=== PATIENT | male | born 1975 | race Caucasian/White ===

== ENCOUNTER → 2020-06-22 | Outpatient (CLI) | payer OTHER ==
--- NOTE | 2020-06-22 20:30 | CONS ---
CONSULTATION DATE OF SERVICE: 06/22/2020 HISTORY OF PRESENT ILLNESS/SLEEP WAKE EVALUATION: 44-year-old gentleman who has been re-evaluated in Sleep Center for obstructive sleep apnea-hypopnea syndrome. The patient has been diagnosed with severe obstructive sleep apnea in 2014 and he was started on treatment with CPAP. He used CPAP for several years, but for the last more than 2 years, patient stopped using any CPAP treatment. SLEEP SCHEDULE: Presently, his sleep schedule from 10 p.m. until around 6 a.m. on work days and from 10 p.m. to 7 a.m. on weekends. FALLING ASLEEP: No problems with falling asleep. No TV in bedroom. DURING SLEEP: Usually sleeps on the side position. He snores and wakes up from sleep up to 10 times with one episode of nocturia. He has symptoms of restless legs and he has significant amount of movements during the night, possibly periodic limb movements. [place]ile Sleepiness Scale today is 9. PAST MEDICAL HISTORY: Positive for hypertension and seasonal allergies. History of strep throat infection in the past. History of some nasal breathing problems. PAST SURGICAL HISTORY: None. MEDICATIONS: Lisinopril 10 mg once a day. Hydrochlorothiazide 12.5 mg once a day. Montelukast 10 mg once a day. FAMILY HISTORY: Hypertension. REVIEW OF SYSTEMS: Multiple awakenings from sleep, sleepiness during the day. PHYSICAL EXAM: gentleman without distress. P 147/79, HR 89, RR 15, height 6 feet and 2 inches, weight 329, temp 98.1. Oxygen saturation at room air 98%. Oropharynx showed tongue protrudes midline. Moderately low position of soft palate. NECK: Supple, no JVD. Thyroid is not palpable. LUNGS: Clear to percussion and to auscultation. Good air exchange. No wheezing or rhonchi. HEART: S1, S2 regular. No murmurs, gallops, or rubs. ABDOMEN: Obese. Soft and nontender. Bowel sounds are present. No organomegaly appreciated. EXTREMITIES: No clubbing or cyanosis. CONTACT LENS CUTTER: Awake, alert, and oriented X3. Cranial nerves 2 to 7 intact. There is no fasciculation or atrophy. noted. No focal deficits observed. IMPRESSION: 1. Snoring, multiple awakenings from sleep, low position of soft palate, wide neck, sleepiness, history of obstructive sleep apnea-hypopnea syndrome, obstructive sleep apnea-hypopnea syndrome. 2. Obesity, body mass index 42.2. 3. Hypertension. 4. Seasonal allergy. 5. History of strep throat infection in the past. 6. Some restriction of nasal breathing. 7. Restless leg symptoms. Possibly periodic limb movements disorder. Patient has significant movements at night. PLAN: 1. Polysomnography for evaluation of patient's breathing during sleep. 2. CPAP/BiPAP titration if sleep study confirms obstructive sleep apnea-hypopnea syndrome. 3. Preferable position during sleep on the side. 4. No driving if patient feels any sleepiness. 5. I will see patient for follow up visit to explain results of testing and following plan. Thank you very much for allowing me to participate in management of your patient. Sincerely, Mendoza He MD, PhD, FAASM Diplomat of [place] [employer] [place] [employer] It Audit Manager of [facility] [place] MMODL / IJN: [id number] /
== END | disposition home or self-care (01) ==
LOC: SLEEP 13:42
PROVIDERS: ATTEND Internal Medicine
DX: G47.33 Obstructive sleep apnea (adult) (pediatric) (principal); E66.9 Obesity, unspecified; I10 Essential (primary) hypertension; G25.81 Restless legs syndrome; J30.2 Other seasonal allergic rhinitis; Z68.41 Body mass index [BMI] 40.0-44.9, adult; Z87.09 Personal history of other diseases of the respiratory system
CPT/HCPCS: 99211

== ENCOUNTER → 2020-10-12 | Outpatient (CLI) | payer OTHER ==
--- NOTE | 2020-10-12 22:43 | SFUN ---
SLEEP CENTER FOLLOW UP NOTE DATE OF SERVICE: 10/12/2020 This 44-year-old gentleman has been followed in Sleep Center for treatment of obstructive sleep apnea-hypopnea syndrome. During home sleep apnea test, apnea-hypopnea index was 10.8 with oxygen desaturation to 77%. Subsequently patient was started on treatment with CPAP. Today is his first visit after starting treatment. The patient feels better with the CPAP but is sometimes experiencing discomfort related to his sinuses because of dryness. According to him, the machine is in automatic regimen for the adjustments of humidity. I checked his CPAP unit. It is in automatic regimen with the pressure 5-15, average pressure 9.8 cm of water. Usage is every night, and / nights for more than 4 hours. Average usage is 6.9 hours per night. Leak is 10 L/minute, which is in acceptable range. Apnea-hypopnea index is 2.9, which is normal. Sometimes the patient feels some discomfort in his ears and nose when he is using CPAP. CURRENT MEDICATIONS: 1. Lisinopril 10 mg once a day. 2. Hydrochlorothiazide 12.5 mg once a day. 3. Montelukast 10 mg once a day. PHYSICAL EXAMINATION: GENERAL: A pleasant patient in no distress. VITAL SIGNS: BP 137/77, HR 76, RR 15, weight 338.6, temperature 98.4, oxygen saturation at room air 98%. HEENT: PERRLA, EOMI. Evaluation of oropharynx showed tongue protrudes midline. Moderately low position of soft palate. NECK: Supple. No JVD. Thyroid is not palpable. LUNGS: Clear to percussion and to auscultation. Good air exchange. No wheezing or rhonchi. HEART: S1, S2 regular. No murmurs, gallops or rubs. ABDOMEN: Slightly obese. EXTREMITIES: No clubbing or cyanosis. BIOFUELS PLANT OPERATIONS ENGINEER: Awake, alert, and oriented X3. Cranial nerves 2 to 7 intact. There is no fasciculation or atrophy. noted. No focal deficits observed. IMPRESSION: 1. Obstructive sleep apnea-hypopnea syndrome. Patient demonstrated great compliance with treatment, benefitting from treatment. 2. Obesity. 3. Hypertension. 4. Seasonal allergies. 5. History of sinus problems. 6. Some dryness in the nose while using his CPAP equipment. PLAN: 1. I extensively discussed with the patient adjustments of humidity, including adjustments of temperature in the humidifier and in the tube. At present it is at the level of 4. Maximum level is 8. The patient should use the manual way of adjustment. The machine should stay lower than his head. Tube has to go directly to the machine without any tube position. 2. Patient will continue to use PAP equipment every night for the whole night. 3. Sleep hygiene with regular time in bed for at least 7-1/2 to 8 hours. 4. Precautions related to driving. No driving if feeling sleepiness. 5. I will maintain all necessary prescription for PAP supplies including mask, tube, filters. 6. Watching weight. 7. No driving if feeling sleepiness. 8. Follow-up visit in 3 months or earlier if patient has any problems. Mendoza He MD, PhD, FAASM Diplomat of [place] [employer] [place] [employer] Medicine Boat Carpenter Mechanic of [facility] [place] MMODL / MAITEN: [id number] /
== END | disposition home or self-care (01) ==
LOC: SLEEP 14:44
PROVIDERS: ATTEND Internal Medicine
DX: G47.33 Obstructive sleep apnea (adult) (pediatric) (principal); E66.9 Obesity, unspecified; I10 Essential (primary) hypertension; J34.89 Other specified disorders of nose and nasal sinuses; J30.2 Other seasonal allergic rhinitis; Z86.69 Personal history of other diseases of the nervous system and sense organs; Z99.89 Dependence on other enabling machines and devices; Z79.51 Long term (current) use of inhaled steroids; Z79.899 Other long term (current) drug therapy

== ENCOUNTER → 2021-01-24 | Outpatient (CLI) | payer OTHER ==
--- NOTE | 2021-01-24 19:36 | SFUN ---
SLEEP CENTER FOLLOW UP NOTE DATE OF SERVICE: 01/24/2021 This 45-year-old gentleman has been followed in Sleep Center for treatment of obstructive sleep apnea-hypopnea syndrome. The patient continues to use his CPAP equipment every night after adjustments related to humidity during the previous visit. Everything has been fixed. No problems with nasal dryness. The patient feels comfortable. Mabel Sleepiness Scale today is 6. I checked his CPAP unit. CPAP pressure is in the range 5 to 15 with average pressure 9.3 cm of water. Usage is 22/30 nights and 21/30 nights for more than 4 hours. Average usage is 6.9 hours per night. Leak is 1 L/minute. Apnea-hypopnea index is 2.0, which is within normal range. MEDICATIONS: 1. Lisinopril 10 mg once a day. 2. Hydrochlorothiazide 12.5 mg once a day. PHYSICAL EXAMINATION: GENERAL: A pleasant patient in no distress. VITAL SIGNS: BP 122/78, HR 64, RR 12. Height 6 feet 2 inches , weight 334.6. Temperature 97.1. Oxygen saturation at room air 99%. HEENT: PERRLA, EOMI. Evaluation of oropharynx showed tongue protrudes midline. Moderately low position of soft palate. NECK: Supple. No JVD. Thyroid is not palpable. LUNGS: Clear to percussion and to auscultation. Good air exchange. No wheezing or rhonchi. HEART: S1, S2 regular. No murmurs, gallops or rubs. ABDOMEN: Obese. EXTREMITIES: No clubbing or cyanosis. MACHINE QUILT STUFFER: Awake, alert, and oriented X3. Cranial nerves 2 to 7 intact. There is no fasciculation or atrophy. noted. No focal deficits observed. IMPRESSION: 1. Obstructive sleep apnea-hypopnea syndrome. Patient demonstrated great compliance with treatment, benefitting from treatment. Normal respiration on CPAP. 2. Hypertension. 3. Obesity. 4. Seasonal allergy. 5. History of sinus problems. PLAN: 1. Patient will continue to use PAP equipment every night for the whole night. 2. Sleep hygiene with regular time in bed for at least 7-1/2 to 8 hours. 3. Precautions related to driving. No driving if feeling sleepiness. 4. I will maintain all necessary prescription for PAP supplies including mask, tube, filters. 5. Watching weight. 6. Follow-up visit in 6 months or earlier if patient has any problems. Sincerely, Mendoza He MD, PhD, FAASM Diplomat of [place] [employer] Special[employer] [place] [employer] Internal Medicine Bevel Face Stoner And Polisher of [facility] [place] MMLELANDL / MAITEN: [id number] /
== END ==
LOC: SLEEP 15:33
PROVIDERS: ATTEND Internal Medicine
DX: G47.33 Obstructive sleep apnea (adult) (pediatric) (principal); I10 Essential (primary) hypertension; E66.9 Obesity, unspecified; J30.2 Other seasonal allergic rhinitis; Z87.09 Personal history of other diseases of the respiratory system

== ENCOUNTER → 2021-09-26 | Outpatient (CLI) | payer OTHER ==
--- NOTE | 2021-09-26 20:26 | SFUN ---
SLEEP CENTER FOLLOW UP NOTE DATE OF SERVICE: 09/26/2021. 45-year-old gentleman has been followed in Sleep Center for treatment of obstructive sleep apnea-hypopnea syndrome. Patient continued to use his CPAP equipment every night. No problems with usage of the machine. He had some questions about the cleaning of equipment which was answered. [place]is Sleepiness Scale today is 5, which is normal. I checked his CPAP unit. The air filter needs to be changed immediately. Pressure is 5- 15 average 9.8. Usage is 29/30 nights and /30 nights more than 4 hours, average 7 hours per night which is good compliance. Leak is 2 L/minute which is absolutely normal. Apnea-hypopnea index is 2.6 which is normal. MEDICATIONS: Lisinopril 10 mg once a day, hydrochlorothiazide 12.5 mg once a day. PHYSICAL EXAMINATION: GENERAL: Patient in no distress. BP 129/78, HR 68, RR 15, height 6 and 1-1/2 inches. Weight 348.6 pounds. Patient increased his weight 14 pounds since previous visit. BMI 45.1, temperature 97.8, oxygen saturation at room air 100%. Evaluation of oropharynx moderately low position of soft palate. HEENT: PERRLA, EOMI, evaluation of oropharynx showed tongue protrudes midline. NECK: Supple, no JVD. Thyroid is not palpable. LUNGS: Clear to percussion and to auscultation. Good air exchange. No wheezing or rhonchi. HEART: S1, S2 regular. No murmurs, gallops, or rubs. ABDOMEN: Obese. Soft and nontender. Bowel sounds are present. No organomegaly appreciated. EXTREMITIES: No clubbing or cyanosis. AG EQUIPMENT FIELD SERVICE TECHNICIAN: Awake, alert, and oriented X3. Cranial nerves 2 to 7 intact. There is no fasciculation or atrophy. noted. No focal deficits observed. IMPRESSION: 1. Obstructive sleep apnea-hypopnea syndrome. Patient demonstrated good compliance with treatment. Normal respiration on CPAP. 2. Obesity; body mass index 45.1. The patient increased his weight 14 pounds since previous visit. 3. Hypertension looks like on control with medications. 4. Seasonal allergies. 5. History of sinus problems. PLAN: 1. Replace air filter immediately. 2. I discussed questions about cleaning equipment. 3. Patient will continue to use PAP equipment every night for the whole night. 4. Sleep hygiene with regular time in bed for at least 7-1/2 to 8 hours. 5. Precautions related to driving. No driving if feeling sleepiness. 6. I will maintain all necessary prescription for PAP supplies including mask, tube, filters. 7. Watching weight. 8. Follow-up visit in 6 months or earlier if patient has any problems. Thank you very much for allowing me to participate in management of your patient. Sincerely, Mendoza He MD, PhD, FAASM Diplomat of [place] [employer] Specialties Sleep Medicine Board of [place] [employer] of Internal Medicine Autobody Technician of [facility] [place] MMODL / MAITEN: [id number] /
== END ==
LOC: SLEEP 10:21
PROVIDERS: ATTEND Internal Medicine
DX: G47.33 Obstructive sleep apnea (adult) (pediatric) (principal); E66.9 Obesity, unspecified; I10 Essential (primary) hypertension; J30.2 Other seasonal allergic rhinitis; Z68.42 Body mass index [BMI] 45.0-49.9, adult; Z99.89 Dependence on other enabling machines and devices; Z79.899 Other long term (current) drug therapy

== ENCOUNTER → 2023-07-31 | Outpatient (CLI) | payer OTHER ==
--- NOTE | 2023-07-31 11:21 | P.PN ---
Subjective DATE: 07/31/2023 FOLLOW UP VISIT. Patient with obstructive sleep apnea hypopnea syndrome return to sleep center for follow-up visit. Information from previous visit have been reviewed. Patient is using PAP equipment every night for the whole night, getting PAP supplies in time. The patient does not have significant problems with the mask, PAP unit and humidification. [place] sleepiness scale is 6. I checked information from PAP unit. PAP unit pressure 5-15, average 9.6 cm H2O. Usage is 100 % for more then 4 hours, average 7.3 hours per night. Leak is 4 l/m, which is in acceptable range. Apnea Hypopnea Index is 1.9, which is normal. MEDICATIONS:1. Lisinopril 10 mg once a day During physical exam: GENERAL: A pleasant patient without any distress. VITAL SIGNS: BP 112/70, HR 71, RR 16, weight 318, temperature 97.6, oxygen saturation at room air 99 % . HEENT: PERRLA, EOMI.low position of soft palate, Mallapati 3 . NECK: Supple. No JVD. LUNGS: Clear to percussion and to auscultation. Good air exchange. No wheezing or rhonchi. HEART: S1, S2 regular. ABDOMEN: Soft and nontender. Slightly obese EXTREMITIES: No clubbing or cyanosis. LATHE SETUP OPERATOR: Awake, alert, and oriented x3. No focal deficit. Impressions: 1. Obstructive sleep apnea-hypopnea syndrome. Patient demonstrated great compliance with treatment, benefiting from treatment. 2. Hypertension. 3. Obesity, patient lost about 30 pounds comparing with previous visit. 4. Seasonal ALLERGIES. 5. History of sinus problems. Plan: 1. Continue using PAP equipment every night for the whole night. 2. To change air filter at least 1-2 times per month. 3. PAP unit should stay lower then position of the head. 4. Advised patient to remove all remaining water from humidifier canister daily and make it dry after each usage. Refill canister with fresh distilled water before each usage. 5. Sleep hygiene with regular time in bed for at least 8 hours. 6. Precautions related to driving. No driving if feel any sleepiness. 7. I will maintain prescription for PAP supplies including mask, tube, filters. 8. Follow up visit in 6 months or earlier if patient has any problems. 9. Watching and continue losing weight. Thank you very much for allowing me to participate in the management of your patient. Mendoza He MD, PhD, FAASM. Diplomat of [place] Board of Sleep Medicine, Sleep Medicine Board by [place] Board of Internal Medicine Transcribing Machine Mechanic of [facility] [place]
== END ==
LOC: 3 N SLEEP 10:33
PROVIDERS: ATTEND Internal Medicine
DX: G47.33 Obstructive sleep apnea (adult) (pediatric) (principal); I10 Essential (primary) hypertension; E66.9 Obesity, unspecified; J30.2 Other seasonal allergic rhinitis; Z99.89 Dependence on other enabling machines and devices; Z79.899 Other long term (current) drug therapy; Z86.69 Personal history of other diseases of the nervous system and sense organs
CPT/HCPCS: 99212

== ENCOUNTER 2023-08-26 09:57 | Day surgery (SDC) | payer OTHER ==
[2023-08-22 13:32] VITALS: BMI 38.7
[2023-08-26] MEDS: LACTATED RINGERS 1,000 ML IV SCH ×2 (10:34→11:11)
[2023-08-26 10:38] VITALS: TEMP 98.1
[2023-08-26] MEDS ORDERED: PROPOFOL 10 MG/ML 20 ML VIAL IV ONE (11:12)
--- NOTE | 2023-08-26 11:26 | P.PCN ---
Date of Procedure: 08/26/23 Procedure(s) Performed: BRIEF HISTORY: Patient is a 47-year-old pleasant white male scheduled for an elective colonoscopy as a part of screening for colon cancer. PROCEDURE PERFORMED: Colonoscopy with biopsy . PREOPERATIVE DIAGNOSIS: Screening for colon cancer. IV sedation per Anesthesia. PROCEDURE: After informed consent was obtained, the patient, was brought into the endoscopy unit. IV sedation was administered by Anesthesia under continuous monitoring. Digital rectal examination was normal. Initially the Olympus CF-160 flexible video colonoscope was then inserted in the rectum, gradually advanced into the cecum without any difficulty. Careful examination was performed as the scope was gradually being withdrawn. Ileocecal valve and the appendiceal orifice were visualized and appeared normal. Prep was excellent. Mucosa of the cecum, ascending colon, transverse colon, descending colon, sigmoid colon, and rectum appeared normal. In the proximal rectum there was a 3-4 mm sessile polyp that was removed by cold biopsy. Retroflexion was performed in the rectum and no lesions were seen. The patient tolerated the procedure well. IMPRESSION: 3-4 mm sessile proximal rectal polyp status post cold biopsy Rest of the colon appeared normal RECOMMENDATIONS: Findings of this examination were discussed with the patient as well as a his family. He was advised to follow with the biopsy results. If the biopsy results adenoma he can have a repeat colonoscopy in 5 years.
[2023-08-26 11:52] VITALS: BP 111/69; PULSE 66; RESP 16
== END 2023-08-26 12:12 | disposition home or self-care (01) ==
LOC: ORWHC2ENDO 09:57
PROVIDERS: ATTEND Internal Medicine Gastroenterology
DX: Z12.11 Encounter for screening for malignant neoplasm of colon (principal); D12.8 Benign neoplasm of rectum; I10 Essential (primary) hypertension; G47.33 Obstructive sleep apnea (adult) (pediatric); G25.81 Restless legs syndrome; Z79.899 Other long term (current) drug therapy; Z98.890 Other specified postprocedural states
CPT/HCPCS: 88305; 45380; J2704

== ENCOUNTER → 2024-07-29 | Outpatient (CLI) | payer OTHER ==
[2024-07-29 11:12] VITALS: BP 115/77; PULSE 64; RESP 18; TEMP 98.1
--- NOTE | 2024-07-29 11:28 | P.PROGSL ---
Subjective DATE: 07/29/2024 FOLLOW UP VISIT. Patient with obstructive sleep apnea hypopnea syndrome return to sleep center for follow-up visit. Information from previous visit have been reviewed. Patient is using PAP equipment every night for the whole night, getting PAP supplies in time. The patient does not have significant problems with the mask, PAP unit and humidification. [place] sleepiness scale is 7, which is normal. I checked information from PAP unit. PAP unit pressure 5-15, average 8.9 cm H2O. Usage is 100% for more then 4 hours, average 7.1 hours per night. Leak is 0 l/m, which is in acceptable range. Apnea Hypopnea Index is 1.5, which is normal. MEDICATIONS have been reviewed, please see below. During physical exam: GENERAL: A pleasant patient without any distress. VITAL SIGNS: Please see below, weight is 334.0 lbs. HEENT: PERRLA, EOMI.low position of soft palate, Mallapati 3. NECK: Supple. No JVD. LUNGS: Clear to percussion and to auscultation. Good air exchange. No wheezing or rhonchi. HEART: S1, S2 regular. ABDOMEN: Soft and nontender. Obese EXTREMITIES: No clubbing or cyanosis. LAYOUT INSPECTOR: Awake, alert, and oriented x3. No focal deficit. Impressions: 1. Obstructive sleep apnea-hypopnea syndrome. Patient demonstrated great compliance with treatment, benefiting from treatment. 2. Obesity, patient increased weight on 16 pounds comparing with the previous visit, BMI 42.8. 3. Hypertension. 4. History of sinuses problems. 5. Seasonal allergies. Plan: 1. Continue using PAP equipment every night for the whole night. 2. Sleep hygiene with regular time in bed for at least 7.5-8 hours 3. PAP unit should stay lower then position of the head. 4. Advised patient to remove all remaining water from humidifier canister daily and make it dry after each usage. Refill canister with fresh distilled water before each usage. 5. Watching and losing weight. 6. Precautions related to driving. No driving if feel any sleepiness. 7. I will maintain prescription for PAP supplies including mask, tube, filters. 8. Follow up visit in 8 months or earlier if patient has any problems. Thank you very much for allowing me to participate in the management of your patient. Mendoza He MD, PhD, FAASM. Diplomat of [place] Board of Sleep Medicine, Sleep Medicine Board by [place] Board of [employer] Medicine Horses Or Mules Teamster of [facility] [place] Objective - Vital Signs Vital Signs: Vital Signs Temp 98.1 F 07/29/24 11:12 Pulse 64 07/29/24 11:12 Resp 18 07/29/24 11:12 BP 115/77 07/29/24 11:12 Pulse Ox 97 07/29/24 11:12 FiO2 Intake & Output 07/28/24 07/29/24 07/29/24 18:59 06:59 18:59 Weight 151.5 kg Home Medications: Home Medications Medication Instructions Recorded Confirmed Type lisinopriL [Zestril] 10 mg PO DAILY 08/22/23 07/29/24 History
== END ==
LOC: 3 N SLEEP 10:57
PROVIDERS: ATTEND Internal Medicine
DX: G47.33 Obstructive sleep apnea (adult) (pediatric) (principal); E66.9 Obesity, unspecified; J30.2 Other seasonal allergic rhinitis; I10 Essential (primary) hypertension; Z87.09 Personal history of other diseases of the respiratory system; Z68.41 Body mass index [BMI] 40.0-44.9, adult; Z99.89 Dependence on other enabling machines and devices; Z79.899 Other long term (current) drug therapy
CPT/HCPCS: 99212